=== PATIENT | male | born 1990 | race Caucasian/White ===

== ENCOUNTER 2020-01-13 20:10 | Emergency (ER) | payer OTHER, SELFPAY ==
[2020-01-13 20:14] VITALS: BP 152/96; PULSE 123; RESP 18; TEMP 36.8; O2SAT 100
--- NOTE | 2020-01-13 20:39 | PC.NURSE ---
talked with pt about what happened to him tonight, pt stated he was having discussion with his and state that if he wasn't going to be with her he'd rather not be around any more, pt states he did not say he was going to commit suicide or any indications to such, than called police and told them he was suicidal. police showed up in his garage and pt was told to come to ER. pt does state he has ahd about a 5th of hard liquor tonight before police showed up, pt calm, no out breaks , answers questions without hesitation, polite, denies suicidal or homicidal ideations at this time.
--- NOTE | 2020-01-13 20:53 | ED.PSYCH ---
HPI - Psych General Chief Complaint: Psychiatric Symptoms Stated Complaint: MENTAL HEALTH Time Seen by Provider: 01/13/20 20:52 Source: patient Mode of arrival: ambulatory Limitations: no limitations History of Present Illness HPI Narrative: Patient a 29-year-old male brought in by private vehicle after he made a comment about cares about me anymore to his , so called his mother and his mother called the police. Patient states that he has been having family problems and admits to drinking but denies having any thoughts of hurting himself or others. Patient denies suicidal ideations. Patient denies homicidal ideations. Related Data Allergies Allergy/AdvReac Type Severity Reaction Status Date / Time No Known Allergies Allergy Verified 07/12/14 11:57 Review of Systems Review of Systems: All systems reviewed & are unremarkable except as noted in HPI and below Constitutional: Constitutional: Denies body ache(s), Denies chills, Denies excessive sweating, Denies fatigue, Denies fever(s), Denies headache(s), Denies lethargy, Denies malaise, Denies weakness and Denies weight loss Eyes: Eyes: Denies blurry vision, Denies change in vision and Denies loss of vision ENT: Denies dizziness, Denies ear discharge, Denies headache(s), Denies lip swelling, Denies epistaxis, Denies nasal congestion, Denies neck pain, Denies throat swelling and Denies tongue swelling Cardiovascular: Cardiovascular: Denies chest pain, Denies chest pain at rest, Denies chest pain with activity, Denies diaphoresis, Denies rapid heart rate, Denies edema, Denies irregular heart rhythm, Denies lightheadedness, Denies palpitations, Denies dyspnea and Denies dyspnea on exertion Respiratory: Respiratory: Denies chest congestion, Denies cough, Denies hemoptysis, Denies dyspnea and Denies dyspnea on exertion Gastrointestinal: Gastrointestinal: Denies abdominal pain, Denies melena, Denies hematochezia, Denies diarrhea, Denies nausea, Denies vomiting and Denies hematemesis Musculoskeletal: Musculoskeletal: Denies abnormal gait, Denies deformity, Denies joint swelling, Denies limited range of motion, Denies neck pain and Denies numbness Neurologic: Denies Abnormal speech present, Denies abnormal gait, Denies confusion, Denies dizziness, Denies headache(s), Denies focal weakness, Denies loss of vision, Denies numbness, Denies Other visual disturbances, Denies Sensory deficit (Neuro) and Denies weakness Psychiatric: Psychiatric: Denies confusion, Denies auditory hallucinations, Denies homicidal ideation and Denies suicidal ideation Endocrine: Endocrine: Denies cold intolerance, Denies excessive sweating, Denies fatigue, Denies heat intolerance and Denies palpitations Hematologic/Lymphatic: Hematologic/Lymphatic: Denies easy bleeding and Denies easy bruising Allergic/Immunologic: Allergic/Immunologic: Denies lip swelling, Denies throat swelling and Denies tongue swelling Exam Const: General: cooperative, healthy appearing, comfortable, no acute distress, well developed, alert and awake; No confusion Orientation/consciousness: oriented to person, oriented to place, oriented to time, patient oriented x3 and No confusion Limitations: no limitations HENMT: Head: normal to inspection, normocephalic and atraumatic Ears: hearing grossly normal bilaterally, TM normal on the right and TM normal on the left General nose exam: Normal external nose present, Normal nares present and No nasal discharge present Face and sinus: normal facial exam Mouth: Yes Normal oral and palatal mucosa present, Yes lip normal, Yes tongue normal and Yes oropharynx normal Throat: posterior oropharynx normal, tonsils normal and uvula midline Eyes: General: appearance normal, both eyes and all related structures Pupils: Equal, round and reactive pupils present EOM: EOMs intact bilaterally Neck: Neck: normal visual inspection, full ROM, no lymphadenopathy and no meningeal signs Chest: Chest palpation &
--- NOTE | 2020-01-13 21:12 | PC.NURSE ---
pt refused to give urine sample.
--- NOTE | 2020-01-13 21:57 | PC.NURSE ---
Dr. Moreira talked with pt and mother, pt denied having any thoughts of harming himself or others, mother agreed to take pt to her house for the night to observe him, pt stated he would go with mother to his house to get things for work in am and then to mothers house to stay the night. mother stated she also did not believe he was going to try to hurt himself. MD asked her if she would take responsibility of pt if released and mother verbalized yes.
[2020-01-13 22:00] VITALS: BP 128/89; PULSE 101; RESP 16; TEMP 36.8; O2SAT 99
== END 2020-01-13 22:02 | disposition home or self-care (01) ==
PROVIDERS: Emergency Provider Emergency Medicine; PCP Family Medicine
DX: F10.94 Alcohol use, unspecified with alcohol-induced mood disorder (principal)
CPT/HCPCS: 99281

== ENCOUNTER 2020-03-26 20:45 | Emergency (ER) | payer OTHER, SELFPAY ==
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
[2020-03-26 20:52] VITALS: BP 154/104; PULSE 102; RESP 17; TEMP 35.7; O2SAT 98
[2020-03-26] MEDS: SODIUM CHLORIDE 0.9% IV 1,000 ML 999 ML IV CONT (21:09)
[2020-03-26] MEDS: TETANUS,DIPHTHERIA,AC PERTUSSIS ADULT (0.5 ML) BOOSTRIX IM (21:09)
[2020-03-26 21:10] LABS: Basophils Percent Auto 0.4 % (0.2-1.2); Eosinophils Percent Auto 0.4 % (0-4.4); Hematocrit 52.4 % (42.0-52.0); Hemoglobin 17.7 g/dL (14.0-18.0); Immature Granulocyte Absolute 0.06 K/mm3 (0.00-0.031); Immature Granulocyte Percent A 0.5 % (0-0.5); Lymphocytes Absolute Auto 1.45 K/mm3 (0.9-3.2); Lymphocytes Percent Auto 13.2 % (18.3-44.2); Mean Corpuscular HGB Conc 33.8 g/dl (32-36); Mean Corpuscular Hemoglobin 29.4 pg (26-34); Mean Platelet Volume 10.6 fl (7.4-10.4); Monocytes Absolute Auto 0.5 K/mm3 (0.1-0.6); Monocytes Percent Auto 4.7 % (2.6-8.5); Neutrophils Absolute Auto 8.9 K/mm3 (1.3-6.7); Neutrophils Percent Auto 80.8 % (45.5-73.1); Platelet Count Result 257 k/mm3 (150-375); Red Blood Count 6.02 M/mm3 (4.6-6.20); Red Cell Distribution Width 12.1 % (11.5-14.5)
[2020-03-26 21:23] LABS: Ethanol 193 mg/dL (<10)
--- NOTE | 2020-03-26 21:29 | PC.NURSE ---
urinal placed at bedside. pt states i cant pee unless you let me drink this rn informed pt that hes currently getting fluids. pt given swab as well.
[2020-03-26 21:30] VITALS: BP 153/101; PULSE 100; RESP 21; O2SAT 99
[2020-03-26 21:30] LABS: Alanine Aminotransferase 66 U/L (4-50); Alkaline Phosphatase 82 U/L (38-126); Anion Gap 13 mmol/L (8-16); Aspartate Amino Transferase 75 U/L (17-59); Bilirubin,Total 0.5 mg/dL (0.2-1.3); Blood Urea Nitrogen 6 mg/dL (9-20); Calcium 9.5 mg/dL (8.4-10.2); Carbon Dioxide 27 mmol/L (22-30); Chloride 105 mmol/L (98-107); Estimated CRCL calculation 125 ml/min; Estimated Glomerular Filt Rate > 60; Glucose 109 mg/dL (75-110); Potassium 4.2 mmol/L (3.4-5.0); Sodium 145 mmol/L (137-145)
[2020-03-26] MEDS: MORPHINE SULFATE (*CRX) 4 MG/ML INJ IV PUSH ×2 (21:41→22:35)
--- NOTE | 2020-03-26 22:06 | PC.NURSE ---
pt states he still isnt able to urinate. refused straight cath.
[2020-03-26 22:15] VITALS: BP 130/81; PULSE 97; RESP 14; O2SAT 98
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
--- NOTE | 2020-03-26 22:52 | PC.NURSE ---
Pt attempted to provide urine sample but was unsuccessful. RN notified.
[2020-03-26 23:21] LABS: Add Urine Microscopic? YES; Appearance Urine Clear (Clear); Bilirubin Urine Negative (Negative); Blood Urine Negative (Negative); Color Urine Straw (Yellow); Glucose Urine UA Negative (Negative); Ketones Urine Negative (Negative); Leukocyte Esterase Ur Negative LEU/UL (Negative); Mucus Urine Rare /lpf; Nitrate Urine Negative (Negative); Protein Urine 1+ mg/dL (Negative); RBC Urine 0-2 /hpf (0-2); Specific Grav Ur 1.028 (1.001-1.035); Urobilinogen Urine Negative mg/dL (<2.0)
[2020-03-27 00:22] VITALS: BP 127/72; PULSE 88; RESP 19; O2SAT 99
== END 2020-03-27 00:25 | disposition home or self-care (01) ==
PROVIDERS: Emergency Provider Emergency Medicine; PCP Family Medicine
DX: S22.31XA Fracture of one rib, right side, initial encounter for closed fracture (principal); S01.81XA Laceration without foreign body of other part of head, initial encounter; Z23 Encounter for immunization; K44.9 Diaphragmatic hernia without obstruction or gangrene; V49.9XXA Car occupant (driver) (passenger) injured in unspecified traffic accident, initial encounter
CPT/HCPCS: 12052; 36415; 70450; 70486; 71260; 72125; 74177; 80053; 80307; 81001; 85025; 90471; 90715; 96361; 96374; 96376; 99284; J2270; J7030; L0140; Q9967

== ENCOUNTER 2021-08-08 12:42 | Emergency (ER) | payer OTHER, SELFPAY ==
--- NOTE | ~2021-08-08 | XR_ITS ---
EXAMINATION: [id number] DATE: 08/08/2021 13:08 INDICATION: Right rib pain. TECHNIQUE: A frontal view of the chest and 2 views of the right ribs were obtained. COMPARISON: Chest 2 views 05/15/2011, chest CT 03/26/2020 FINDINGS: The chest demonstrates clear lungs without pneumonia, pleural effusion, or pneumothorax. Th e heart size is normal. IMPRESSION: 1. No rib fracture. Reviewed, dictated and finalized at location B. IMPRESSION: 1. No rib fracture.
[2021-08-08 12:53] VITALS: BP 144/90; PULSE 112; RESP 18; TEMP 36.8; O2SAT 100
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
== END 2021-08-08 13:37 | disposition home or self-care (01) ==
PROVIDERS: Emergency Provider Nurse Practitioner; PCP Family Medicine
DX: S20.211A Contusion of right front wall of thorax, initial encounter (principal); W19.XXXA Unspecified fall, initial encounter; I10 Essential (primary) hypertension; F90.9 Attention-deficit hyperactivity disorder, unspecified type
CPT/HCPCS: 71101; 99213; G0463